=== PATIENT | female | born 2000 | race Caucasian/White ===

== ENCOUNTER 2022-10-20 08:19 | Emergency (ER) | payer BC, SELFPAY ==
--- NOTE | 2022-10-20 08:26 | ED.URI ---
HPI - URI/Sore Throat General Chief Complaint: Upper Respiratory Infection Stated Complaint: respiratory/headache/throat Time Seen by Provider: 10/20/22 08:27 Source: patient Mode of arrival: ambulatory Limitations: no limitations History of Present Illness HPI Narrative: May is a 21 year old female patient presenting to the clinic today with complaints of cough, nasal congestion, headache, and sore throat x1 day. She reports no known fever but has had some chills. Has had positive exposure to coworkers with COVID. History of tonsillectomy. Denies any chest pain or shortness of breath. Related Data Home Medications Medication Instructions Recorded Confirmed cyclobenzaprine 10 mg tablet 10 mg PO PRN PRN Pain (Scale Score 10/20/22 10/20/22 4-6) etonogestrel 0.12 mg-ethinyl 1 vag ring vaginal MONTHLY 10/20/22 10/20/22 estradiol 0.015 mg/24 hr vaginal ring (NuvaRing) hydroxychloroquine 200 mg tablet 200 mg PO DAILY 10/20/22 10/20/22 Allergies Allergy/AdvReac Type Severity Reaction Status Date / Time No Known Allergies Allergy Verified 10/20/22 08:33 Review of Systems Review of Systems: Pertinent positives per HPI. Patient denies any fever, rash, headache, visual changes, dizziness, shortness of breath, chest pain, palpitations, nausea, vomiting, diarrhea, constipation, abdominal pain, or any urinary issues. PMFSH Comments At the time of my signature, I reviewed and agree with the nursing past medical, surgical, social, and family history. There is no relevant family history pertinent to the patient complaint. Exam Narrative: General: Well-developed, well nourished, in no apparent distress Head: Normocephalic, atraumatic Eyes: Pupils equally round and reactive to light bilaterally, EOM intact, sclera and conjunctive clear, no discharge, lids normal Ears: TMs intact and clear, ear canals clear, no drainage, grossly hearing normal. Nose: Nares patent, clear nasal discharge, no inflammation, no sinus tenderness. Mouth: Oropharynx red without lesions or masses, good dentition, MMM. Tonsils surgically absent Neck: Supple, trachea midline, no enlargement of anterior or posterior cervical nodes, no thyroid masses or goiter palpable. Cardio: Regular rate and rhythm, s1 and s2 normal, no murmur appreciated. Resp: Clear to auscultation bilaterally anteriorly and posteriorly, no rhonchi, rales, wheezing or rubs Course Course Emergency Course: Portions of this record may have been created with voice recognition software. Level of Care: Express Care Visit Vital Signs Vital signs: Vital Signs Temperature 36.8 C 10/20/22 08:28 Pulse Rate 102 H 10/20/22 08:28 Respiratory Rate 18 10/20/22 08:28 Blood Pressure 136/80 10/20/22 08:28 Pulse Oximetry 99 10/20/22 08:28 Oxygen Delivery Room Air 10/20/22 08:28 Temperature 36.8 C 10/20/22 08:28 Pulse Rate 102 H 10/20/22 08:28 Respiratory Rate 18 10/20/22 08:28 Blood Pressure 136/80 10/20/22 08:28 Pulse Oximetry 99 10/20/22 08:28 Oxygen Delivery Room Air 10/20/22 08:30 Vital signs reviewed MDM - URI/Sore Throat MDM Narrative Medical decision making narrative: At the time of visit patient is resting comfortably on the exam table. Strep screen was obtained was positive. COVID testing was negative. Prescription for amoxicillin was sent to the pharmacy and supportive measures were discussed with the patient and she voiced understanding of the discharge instructions and agrees to treatment plan. Differential Diagnosis Differential diagnosis: Likely upper respiratory infection, otitis media, sinusitis, viral infection, bronchitis, influenza, pharyngitis and other (COVID) Lab Data Labs: Lab Results 10/20/22 Range/Units 08:36 POC SARS CoV-2 Ag Negative (Negative) Strep Screen Positive Group A Strep *(Reference Range: Negative)* Dis
[2022-10-20 08:28] VITALS: BP 136/80; PULSE 102; RESP 18; TEMP 36.8; O2SAT 99
== END 2022-10-20 09:05 | disposition home or self-care (01) ==
PROVIDERS: Emergency Provider Nurse Practitioner Family; PCP Family Medicine
DX: J02.0 Streptococcal pharyngitis (principal); Z79.899 Other long term (current) drug therapy; Z20.822 Contact with and (suspected) exposure to COVID-19
CPT/HCPCS: 87426; 87880; 99213; C9803; G0463